=== PATIENT | male | born 1995 | race Caucasian/White ===

== ENCOUNTER → 2017-02-23 | Outpatient (REF) | payer OTHER | LOC: M SFHCLERA 18:10 | PROVIDERS: ATTEND Nurse Practitioner Family | DX: J02.9 Acute pharyngitis, unspecified (principal) ==

== ENCOUNTER → 2020-05-08 | Outpatient (CLI) | payer SELFPAY | LOC: M LABSMTC 14:31 | PROVIDERS: ATTEND Pediatrics | DX: Z20.828 Contact with and (suspected) exposure to other viral communicable diseases (principal) ==

== ENCOUNTER 2023-12-08 16:24 | Emergency (ER) | payer OTHER ==
[~2023-12-08] VITALS: Ht 182.9 cm; Wt 104.5 kg
[2023-12-08] MEDS: LIDOCAINE 2% MDV 20ML VIAL SC ONE (23:00)
[2023-12-08] MEDS: TETANUS IMMUNE GLOBULIN (HUMAN) 250 UNITS/ML SYRINGE IM ONE (23:55)
[2023-12-09] MEDS: BACITRACIN OINTMENT 30GM TUBE TOP ONE (00:07)
[2023-12-09] MEDS: CEPHALEXIN 500 MG CAP PO ONE (00:11)
[2023-12-09] MEDS ORDERED: AUGM12TA11 PO (00:13)
[2023-12-09 00:22] VITALS: BP 118/73; TEMP 97.4; O2SAT 97
[2023-12-09] MEDS: BOOSTRIX VACCINE (TETANUS/DIPHTH/ACEL. PERTUSSIS) 0.5ML SYR IM ONE (00:28)
[2023-12-09] MEDS ORDERED: AMOX875T2 PO (08:45)
== END 2023-12-09 00:46 | disposition home or self-care (01) ==
LOC: M ED 16:24
DX: S61.210A Laceration without foreign body of right index finger without damage to nail, initial encounter (principal); W26.8XXA Contact with other sharp object(s), not elsewhere classified, initial encounter; Z23 Encounter for immunization; Y92.513 Shop (commercial) as the place of occurrence of the external cause; Y93.89 Activity, other specified; Y99.0 Civilian activity done for income or pay; Z79.2 Long term (current) use of antibiotics